=== PATIENT | female | born 1975 | race Asian ===

== ENCOUNTER → 2017-10-10 | Outpatient (CLI) | END | disposition home or self-care (01) ==

== ENCOUNTER → 2017-12-10 | Outpatient (CLI) | END | disposition home or self-care (01) ==

== ENCOUNTER → 2018-12-09 | Outpatient (CLI) | payer BC ==
[~2018-12-09] MED LIST: ASPI-817 PO; ASPI-903 PO
== END | disposition home or self-care (01) ==
LOC: LAB 11:34
PROVIDERS: ATTEND Internal Medicine
DX: E78.5 Hyperlipidemia, unspecified (principal); E03.9 Hypothyroidism, unspecified
CPT/HCPCS: 80053; 80061; 84436; 84443; 85025

== ENCOUNTER 2019-02-20 17:09 | Emergency (ER) | payer BC, OTHER ==
[~2019-02-20] VITALS: Ht 162.6 cm; Wt 65.0 kg
[~2019-02-20 17:09] MED LIST changes: +CPR3OO3.5 BOTH EYES
[2019-02-20 17:19] VITALS: Ht 162.6 cm; Wt 65.0 kg
== END 2019-02-20 17:44 | disposition home or self-care (01) ==
LOC: E/R 17:09
DX: Z77.21 Contact with and (suspected) exposure to potentially hazardous body fluids (principal); Z79.82 Long term (current) use of aspirin
CPT/HCPCS: 80076; 85025; 86703; 86706; 86803; 87340; 99283